=== PATIENT | male | born 1935 | race African-American/Black ===

== ENCOUNTER 2023-11-01 15:13 | Inpatient (IN) | payer OTHER, MEDICAID ==
[~2023-11-01] VITALS: Ht 175.3 cm; Wt 97.7 kg
[2023-11-01 15:15] VITALS: BP 92/48; PULSE 88; RESP 17; TEMP 97.7; O2SAT 97
[2023-11-01] MEDS: NACL 0.9% 1,000 ML IV ONE (15:38)
[2023-11-01 16:32] LABS: APPEARANCE,URINE CLEAR (CLEAR); BILIRUBIN,URINE NEGATIVE (NEGATIVE); BLOOD, URINE TRACE-I (NEGATIVE); COLOR,URINE YELLOW (YELLOW); LEUKOCYTE ESTERASE ,URINE NEGATIVE (NEGATIVE); NITRITE, URINE NEGATIVE (NEGATIVE); PROTEIN,URINE TRACE (NEGATIVE); UGLUCOSE NEGATIVE (NEGATIVE); UROBILINOGEN,URINE 0.2 EU/dL (0.2 - 1)
[2023-11-01 16:50] LABS: BLOOD GAS BASE EXCESS 3.2 mmol/L (-2.0-2.0); BLOOD GAS HCO3 27.1 mmol/L (22-26); BLOOD GAS PCO2 38.5 mmHg (35-45); BLOOD GAS PH 7.466 (7.35-7.45); BLOOD GAS PO2 168.9 mmHg (75-100)
[2023-11-01 16:51] LABS: BLOOD GAS O2 SAT% 99.5 % (92.0-98.5)
[2023-11-01 16:56] LABS: RBC,URINE 0-5 /HPF (0-5); WBC,URINE 0-5 /HPF (0-5)
[2023-11-01 16:57] LABS: BACTERIA,URINE FEW /HPF (None Seen); SQUAMOUS EPITHELIAL CELL,UR 0-3 (FEW) /LPF (0-3 (FEW))
[2023-11-01 17:18] LABS: BASOPHILS % (AUTO) 0.1 % (0.0-2.0); EOSINOPHILS # (AUTO) 0.1 K/uL (0-0.4); EOSINOPHILS % (AUTO) 1.3 % (0.0-4.0); HEMATOCRIT 22.1 % (36-52); HEMOGLOBIN 7.1 g/dL (12.0-18.0); LYMPHOCYTES # (AUTO) 0.5 K/uL (2.0-11.5); LYMPHOCYTES % (AUTO) 5.8 % (20.5-51.1); MEAN CORPUSCULAR HEMOGLOBIN 32 pg (27-31); MEAN CORPUSCULAR HGB CONC 32 g/dL (33-37); MEAN CORPUSCULAR VOLUME 98.8 fL (80-94); MONOCYTES # (AUTO) 0.7 K/uL (0.8-1.0); MONOCYTES % (AUTO) 8.3 % (1.7-9.3); NEUTROPHILS % (AUTO) 84.5 % (42.2-75.2); PLATELET COUNT (AUTO) 103 K/uL (140-450); RED BLOOD CELL COUNT(AUTO) 2.24 MIL/uL (4.20-6.10); RED CELL DISTRIBUTION WIDTH 21.9 % (11.6-13.7); WHITE BLOOD COUNT (AUTO) 8.2 K/uL (4.8-10.8)
[2023-11-01 17:39] LABS: LACTIC ACID 1.1 mmol/L (0.4-2.0)
[2023-11-01 17:46] LABS: ANION GAP 13.6 (8-16); CARBON DIOXIDE 24.3 mmol/L (21-32); CHLORIDE 105 mmol/L (98-107); CREATININE 3.1 mg/dL (0.6-1.3); GLUCOSE 83 mg/dL (74-106); POTASSIUM 4.9 mmol/L (3.5-5.1); SODIUM SERUM 138 mmol/L (136-145); UREA NITROGEN, BLOOD 50 mg/dL (7-18)
[2023-11-01 17:48] LABS: ALANINE AMINOTRANSFERASE 28 U/L (12-78); ALBUMIN 1.6 g/dL (3.4-5.0); ALKALINE PHOSPHATASE 61 U/L (50-136); ASPARTATE AMINOTRANSFERASE 24 U/L (15-37); BILIRUBIN,DIRECT 0.1 mg/dL (0.0-0.3); MAGNESIUM 1.9 mg/dL (1.8-2.4); PHOSPHORUS 4.4 mg/dL (2.5-4.9); TOTAL BILIRUBIN 0.3 mg/dL (0.0-1.0); TOTAL PROTEIN, SERUM 4.1 g/dL (6.4-8.2)
[2023-11-01] MEDS ORDERED: HYDROcodone/APAP 5/325 MG 1 TAB TAB PO PRN (18:55)
[2023-11-01] MEDS ORDERED: ACETAMINOPHEN 325 MG TAB PO PRN (18:55)
[2023-11-01] MEDS ORDERED: ONDANSETRON 4 MG/2 ML VIAL IVP PRN (18:55)
[2023-11-01] MEDS ORDERED: INSULIN LISPRO SLIDING SCALE 100 UNITS/ML VIAL SUBQ PRN (19:00)
[2023-11-01] MEDS ORDERED: DEXTROSE 50% 50 ML SYR IVP PRN (19:00)
[2023-11-01 19:45] VITALS: O2SAT 100
[2023-11-01] MEDS: NACL 0.9% 1,000 ML IV SCH (20:19)
[2023-11-01] MEDS ORDERED: VANCOMYCIN 1,000 MG VIAL ONE (20:29)
[2023-11-01] MEDS ORDERED: NOREPINEPHRINE 4 MG/4 ML VIAL IV ONE (20:31)
[2023-11-01] MEDS: VANCOMYCIN 1,000 MG in DEXTROSE 5% 250 ML IV ONE (20:31)
[2023-11-01] MEDS: NOREPINEPHRINE 4 MG in DEXTROSE 5% 250 ML IV PRN (20:50)
[2023-11-01] MEDS: BLOOD GLUCOSE MONITORING 1 DEV DEV FS SCH (20:58)
[2023-11-01] MEDS ORDERED: DEXTROSE 25% 10 ML SYR IVP ONE (21:00)
[2023-11-01] MEDS: DEXTROSE 50% 50 ML SYR IVP ONE (21:16)
[2023-11-01 22:23] VITALS: PULSE 73; RESP 20; O2SAT 100
[2023-11-01 22:33] VITALS: O2SAT 99
[2023-11-01] MEDS: Z-GUARD PASTE TP ONE ×2 (22:40)
[2023-11-01 23:00] VITALS: BP 102/55; PULSE 71; RESP 20; TEMP 95.9; O2SAT 100
[2023-11-01] MEDS: NOREPINEPHRINE 4 MG/4 ML VIAL IV ONE (23:05)
[2023-11-01 23:31] VITALS: PULSE 87; RESP 18; O2SAT 97
[2023-11-01] MEDS ORDERED: MEROPENEM 1,000 MG VIAL IV ONE (23:54)
[2023-11-01] MEDS: MEROPENEM 1,000 MG in NACL 0.9% 50 ML IV ONE (23:58)
[2023-11-02] VITALS (24 sets, daily range): BP systolic 87–136; BP diastolic 43–98; PULSE 68–87; RESP 13–20; TEMP 96.1–99; O2SAT 96–100
[2023-11-02] MEDS: NOREPINEPHRINE 16 MG in DEXTROSE 5% 250 ML IV PRN (00:12)
[2023-11-02 05:33] LABS: ANION GAP 10.6 (8-16); CALCIUM 8.2 mg/dL (8.5-10.1); CHLORIDE 104 mmol/L (98-107); CREATININE 3.5 mg/dL (0.6-1.3); GLUCOSE 90 mg/dL (74-106); POTASSIUM 4.6 mmol/L (3.5-5.1); SODIUM SERUM 137 mmol/L (136-145); UREA NITROGEN, BLOOD 48 mg/dL (7-18)
[2023-11-02] MEDS: NACL 0.9% 1,000 ML IV SCH ×2 (06:47→17:55)
[2023-11-02 07:16] LABS: BASOPHILS % (AUTO) 0.3 % (0.0-2.0); EOSINOPHILS # (AUTO) 0.1 K/uL (0-0.4); HEMOGLOBIN 7.7 g/dL (12.0-18.0); LYMPHOCYTES # (AUTO) 0.6 K/uL (2.0-11.5); LYMPHOCYTES % (AUTO) 8.4 % (20.5-51.1); MEAN CORPUSCULAR HEMOGLOBIN 33 pg (27-31); MEAN CORPUSCULAR HGB CONC 34 g/dL (33-37); MONOCYTES # (AUTO) 0.7 K/uL (0.8-1.0); MONOCYTES % (AUTO) 9.5 % (1.7-9.3); NEUTROPHILS # (AUTO) 5.5 K/uL (1.8-7.7); NEUTROPHILS % (AUTO) 79.8 % (42.2-75.2); PLATELET COUNT (AUTO) 99 K/uL (140-450); RED BLOOD CELL COUNT(AUTO) 2.35 MIL/uL (4.20-6.10); RED CELL DISTRIBUTION WIDTH 20.5 % (11.6-13.7)
[2023-11-02] MEDS ORDERED: ENOXAPARIN 30 MG/0.3 ML SYR SUBQ SCH (09:00)
[2023-11-02] MEDS: BLOOD GLUCOSE MONITORING 1 DEV DEV FS SCH (12:26)
[2023-11-02] MEDS ORDERED: MIDODRINE 5 MG TAB GT SCH (13:00)
[2023-11-02] MEDS: HYDROCORTISONE NA SUCC 100 MG/2 ML VIAL IV SCH (15:13)
[2023-11-02] MEDS: PIPERACILLIN/TAZOBACTAM 2.25 GM in DEXTROSE 5% 50 ML IV SCH (15:13)
[2023-11-02] MEDS: MIDODRINE 5 MG TAB GT SCH (15:14)
[2023-11-02] MEDS ORDERED: PIPERACILLIN/TAZOBACTAM 3.375 GM in DEXTROSE 5% 50 ML IV SCH (18:00)
[2023-11-03] VITALS (16 sets, daily range): BP systolic 100–137; BP diastolic 54–86; PULSE 72–92; RESP 16–21; TEMP 97–97.8; O2SAT 96–100
[2023-11-03] MEDS ORDERED: PRO5 PO (03:15)
[2023-11-03] MEDS ORDERED: ROSU40TA PO (03:15)
[2023-11-03] MEDS ORDERED: AMIO200T62 PO (03:15)
[2023-11-03] MEDS ORDERED: POTA10TA70 PO (03:15)
[2023-11-03] MEDS ORDERED: TAMS0.4C96 PO (03:15)
[2023-11-03] MEDS ORDERED: XALOS OP (03:15)
[2023-11-03] MEDS ORDERED: PRED5TAB7 PO (03:15)
[2023-11-03] MEDS ORDERED: SYN.05 PO (03:15)
[2023-11-03] MEDS ORDERED: MIRT-120 PO (03:15)
[2023-11-03] MEDS ORDERED: DEXT30DR2 OP (03:15)
[2023-11-03] MEDS ORDERED: [UNRECOGNIZED DRUG - CODE] IJ (03:15)
[2023-11-03 04:54] LABS: BASOPHILS % (AUTO) 0.1 % (0.0-2.0); HEMATOCRIT 22.3 % (36-52); HEMOGLOBIN 7.6 g/dL (12.0-18.0); LYMPHOCYTES # (AUTO) 0.3 K/uL (2.0-11.5); LYMPHOCYTES % (AUTO) 3.7 % (20.5-51.1); MEAN CORPUSCULAR HEMOGLOBIN 33 pg (27-31); MEAN CORPUSCULAR HGB CONC 34 g/dL (33-37); MONOCYTES # (AUTO) 0.2 K/uL (0.8-1.0); MONOCYTES % (AUTO) 1.8 % (1.7-9.3); NEUTROPHILS # (AUTO) 8.6 K/uL (1.8-7.7); NEUTROPHILS % (AUTO) 94.4 % (42.2-75.2); PLATELET COUNT (AUTO) 119 K/uL (140-450); RED CELL DISTRIBUTION WIDTH 20.1 % (11.6-13.7); WHITE BLOOD COUNT (AUTO) 9.1 K/uL (4.8-10.8)
[2023-11-03 06:28] LABS: ALANINE AMINOTRANSFERASE 31 U/L (12-78); ALBUMIN 1.7 g/dL (3.4-5.0); ALKALINE PHOSPHATASE 86 U/L (50-136); ANION GAP 13.5 (8-16); ASPARTATE AMINOTRANSFERASE 28 U/L (15-37); CALCIUM 7.7 mg/dL (8.5-10.1); CARBON DIOXIDE 26.7 mmol/L (21-32); CHLORIDE 104 mmol/L (98-107); CREATININE 2.4 mg/dL (0.6-1.3); GLUCOSE 138 mg/dL (74-106); MAGNESIUM 1.8 mg/dL (1.8-2.4); PHOSPHORUS 2.4 mg/dL (2.5-4.9); POTASSIUM 5.2 mmol/L (3.5-5.1); SODIUM SERUM 139 mmol/L (136-145); TOTAL BILIRUBIN 0.3 mg/dL (0.0-1.0); TOTAL PROTEIN, SERUM 4.9 g/dL (6.4-8.2); UREA NITROGEN, BLOOD 35 mg/dL (7-18)
[2023-11-03] MEDS ORDERED: PANTOPRAZOLE 40 MG INJ VIAL IVP SCH (09:00)
[2023-11-03] MEDS: PANTOPRAZOLE 40 MG INJ VIAL IVP SCH (09:27)
[2023-11-03] MEDS ORDERED: MILD SOAP AND WATER TP PRN (10:00)
[2023-11-03] MEDS ORDERED: NON ADHERENT DRESSING TP PRN (10:00)
[2023-11-03] MEDS ORDERED: FOAM DRESSING TP PRN (10:00)
[2023-11-03] MEDS ORDERED: EPOETIN ALFA-EPBX 10,000 UNITS/ML VIAL IV SCH (12:30)
[2023-11-03] MEDS: FOAM DRESSING TP SCH (13:55)
[2023-11-03] MEDS: MILD SOAP AND WATER TP SCH (13:55)
[2023-11-03] MEDS: NON ADHERENT DRESSING TP SCH (13:55)
[2023-11-03] MEDS: EPOETIN ALFA-EPBX 10,000 UNITS/ML VIAL IV SCH (15:14)
[2023-11-03] MEDS: MIRTAZAPINE 15 MG TAB PO SCH (20:37)
[2023-11-03] MEDS: HYDROCORTISONE NA SUCC 100 MG/2 ML VIAL IV SCH (20:42)
[2023-11-04] VITALS: BP 136/72; PULSE 74; PULSE 76; RESP 20; TEMP 97; O2SAT 100
[2023-11-04] MEDS ORDERED: Z-GUARD PASTE TP PRN (01:20)
[2023-11-04 04:00] VITALS: BP 125/53; PULSE 75; PULSE 77; RESP 20; TEMP 97.7; O2SAT 100
[2023-11-04] MEDS: LEVOTHYROXINE 0.05 MG TAB PO SCH (05:53)
[2023-11-04 06:15] LABS: ALANINE AMINOTRANSFERASE 24 U/L (12-78); ALBUMIN 1.7 g/dL (3.4-5.0); ALKALINE PHOSPHATASE 71 U/L (50-136); ANION GAP 9.7 (8-16); ASPARTATE AMINOTRANSFERASE 24 U/L (15-37); CALCIUM 7.7 mg/dL (8.5-10.1); CARBON DIOXIDE 27.6 mmol/L (21-32); CHLORIDE 105 mmol/L (98-107); CREATININE 2.6 mg/dL (0.6-1.3); GLUCOSE 101 mg/dL (74-106); MAGNESIUM 1.9 mg/dL (1.8-2.4); PHOSPHORUS 3.2 mg/dL (2.5-4.9); POTASSIUM 4.3 mmol/L (3.5-5.1); SODIUM SERUM 138 mmol/L (136-145); TOTAL BILIRUBIN 0.4 mg/dL (0.0-1.0); TOTAL PROTEIN, SERUM 4.8 g/dL (6.4-8.2); UREA NITROGEN, BLOOD 40 mg/dL (7-18)
[2023-11-04 06:29] LABS: FREE T4 (FREE THYROXINE) 0.46 ng/dL (0.76-1.46); THYROID STIMULATING HORMONE 1.48 uIU/mL (0.34-3.74)
[2023-11-04 08:00] VITALS: BP 122/60; PULSE 77; PULSE 88; RESP 18; TEMP 96.9; O2SAT 100; O2SAT 96
[2023-11-04 08:10] LABS: BASOPHILS % (AUTO) 0.1 % (0.0-2.0); HEMATOCRIT 21.8 % (36-52); HEMOGLOBIN 7.4 g/dL (12.0-18.0); LYMPHOCYTES # (AUTO) 0.4 K/uL (2.0-11.5); LYMPHOCYTES % (AUTO) 5.6 % (20.5-51.1); MEAN CORPUSCULAR HEMOGLOBIN 33 pg (27-31); MEAN CORPUSCULAR HGB CONC 34 g/dL (33-37); MONOCYTES # (AUTO) 0.2 K/uL (0.8-1.0); MONOCYTES % (AUTO) 2.7 % (1.7-9.3); NEUTROPHILS # (AUTO) 6.7 K/uL (1.8-7.7); NEUTROPHILS % (AUTO) 91.6 % (42.2-75.2); PLATELET COUNT (AUTO) 105 K/uL (140-450); RED BLOOD CELL COUNT(AUTO) 2.25 MIL/uL (4.20-6.10); RED CELL DISTRIBUTION WIDTH 20.1 % (11.6-13.7)
[2023-11-04 08:12] LABS: WHITE BLOOD COUNT (AUTO) 7.3 K/uL (4.8-10.8)
[2023-11-04] MEDS ORDERED: ECOTRIN 81 MG TABEC PO SCH (09:00)
[2023-11-04] MEDS: ASPIRIN 81 MG TAB.CHEW GT SCH (09:18)
[2023-11-04] MEDS: AMIODARONE 200 MG TAB PO SCH (09:18)
[2023-11-04] MEDS: TAMSULOSIN 0.4 MG CAP PO SCH (09:18)
[2023-11-04] MEDS ORDERED: ACETAMINOPHEN 325 MG TAB GT PRN (10:55)
[2023-11-04 12:15] VITALS: BP 117/48; PULSE 74; RESP 18; TEMP 97; O2SAT 100
[2023-11-04 16:00] VITALS: BP 126/75; PULSE 78; RESP 18; TEMP 96.8; O2SAT 100
[2023-11-04 20:00] VITALS: BP 139/77; PULSE 78; RESP 18; TEMP 97.1; O2SAT 100
[2023-11-04] MEDS: HYDROCORTISONE NA SUCC 100 MG/2 ML VIAL IV SCH (20:57)
[2023-11-05] MEDS: LEVOTHYROXINE 0.05 MG TAB GT SCH (05:49)
[2023-11-05 06:22] LABS: ALANINE AMINOTRANSFERASE 33 U/L (12-78); ALBUMIN 1.6 g/dL (3.4-5.0); ALKALINE PHOSPHATASE 87 U/L (50-136); ASPARTATE AMINOTRANSFERASE 32 U/L (15-37); CALCIUM 7.7 mg/dL (8.5-10.1); CARBON DIOXIDE 22.9 mmol/L (21-32); CHLORIDE 104 mmol/L (98-107); CREATININE 2.8 mg/dL (0.6-1.3); GLUCOSE 103 mg/dL (74-106); POTASSIUM 3.9 mmol/L (3.5-5.1); SODIUM SERUM 138 mmol/L (136-145); TOTAL BILIRUBIN 0.2 mg/dL (0.0-1.0); TOTAL PROTEIN, SERUM 5.1 g/dL (6.4-8.2); UREA NITROGEN, BLOOD 43 mg/dL (7-18)
[2023-11-05 07:27] LABS: BASOPHILS % (AUTO) 0.3 % (0.0-2.0); EOSINOPHILS % (AUTO) 0.1 % (0.0-4.0); HEMATOCRIT 22.6 % (36-52); HEMOGLOBIN 7.6 g/dL (12.0-18.0); LYMPHOCYTES # (AUTO) 0.7 K/uL (2.0-11.5); LYMPHOCYTES % (AUTO) 8.7 % (20.5-51.1); MEAN CORPUSCULAR HEMOGLOBIN 33 pg (27-31); MEAN CORPUSCULAR HGB CONC 33 g/dL (33-37); MEAN CORPUSCULAR VOLUME 98.1 fL (80-94); MONOCYTES # (AUTO) 0.2 K/uL (0.8-1.0); MONOCYTES % (AUTO) 2.7 % (1.7-9.3); NEUTROPHILS # (AUTO) 6.8 K/uL (1.8-7.7); NEUTROPHILS % (AUTO) 88.2 % (42.2-75.2); PLATELET COUNT (AUTO) 117 K/uL (140-450); RED BLOOD CELL COUNT(AUTO) 2.31 MIL/uL (4.20-6.10); RED CELL DISTRIBUTION WIDTH 20.5 % (11.6-13.7); WHITE BLOOD COUNT (AUTO) 7.8 K/uL (4.8-10.8)
[2023-11-05 08:00] VITALS: BP 142/76; PULSE 72; RESP 18; TEMP 96.9; O2SAT 100
[2023-11-05] MEDS ORDERED: TAMSULOSIN 0.4 MG CAP GT SCH (09:00)
[2023-11-05] MEDS: AMIODARONE 200 MG TAB GT SCH (09:32)
[2023-11-05] MEDS: EPOETIN ALFA-EPBX 10,000 UNITS/ML VIAL IV SCH (09:41)
[2023-11-05 12:30] VITALS: BP 133/63; PULSE 72; RESP 18; TEMP 98.2; O2SAT 100
[2023-11-05] MEDS ORDERED: PRED5TAB7 PO (15:24)
[2023-11-05] MEDS ORDERED: PRO5 PO (15:26)
[2023-11-05 16:00] VITALS: BP 112/52; PULSE 75; RESP 18; TEMP 97.8; O2SAT 100
== END 2023-11-05 17:59 | DRG 871 ==
LOC: MED 15:13 → MTU 18:55 → MIC 20:41 → MTU 11-03 19:05
PROVIDERS: ADMIT Internal Medicine; ATTEND Internal Medicine
PROC: 5A1D70Z Performance of Urinary Filtration, Intermittent, Less than 6 Hours Per Day (ICD-10-PCS; principal; 2023-11-02)
DX: A41.9 Sepsis, unspecified organism (principal); N18.6 End stage renal disease; R65.21 Severe sepsis with septic shock; I12.0 Hypertensive chronic kidney disease with stage 5 chronic kidney disease or end stage renal disease; N17.9 Acute kidney failure, unspecified; I48.91 Unspecified atrial fibrillation; E03.9 Hypothyroidism, unspecified; E78.5 Hyperlipidemia, unspecified; L89.151 Pressure ulcer of sacral region, stage 1; N40.0 Benign prostatic hyperplasia without lower urinary tract symptoms; I25.10 Atherosclerotic heart disease of native coronary artery without angina pectoris; F03.90 Unspecified dementia, unspecified severity, without behavioral disturbance, psychotic disturbance, mood disturbance, and anxiety; E11.22 Type 2 diabetes mellitus with diabetic chronic kidney disease; I95.2 Hypotension due to drugs; T38.0X5A Adverse effect of glucocorticoids and synthetic analogues, initial encounter; D63.1 Anemia in chronic kidney disease; Z79.01 Long term (current) use of anticoagulants; Z99.2 Dependence on renal dialysis; Z95.0 Presence of cardiac pacemaker; Y92.89 Other specified places as the place of occurrence of the external cause; Z86.73 Personal history of transient ischemic attack (TIA), and cerebral infarction without residual deficits
CPT/HCPCS: 36415; 36600; 70370; 70450; 71045; 80048; 80053; 80076; 81001; 82570; 82803; 82948; 83605; 83735; 84100; 84439; 84443; 84484; 85025; 87040; 87081; 87086; 90935; 92526; 92611; 96361; 96374; 96375; 97110; 97116; 97163-GP; 97530; 99291; J1644; J1720; J1815; J2185; J2543; J3370; J3490; J7060; Q0092; Q5106